=== PATIENT | male | born 1995 | race Caucasian/White ===

== ENCOUNTER 2018-01-07 13:02 | Emergency (ER) | payer OTHER ==
[2018-01-07] MEDS ORDERED: ONDANSETRON 4 MG/2 ML VIAL IVP ONE (13:15)
--- NOTE | 2018-01-07 13:19 | EDPHY ---
H & P Stated Complaint: RLQ/nausea pain for 3 days Time Seen by Provider: 01/07/18 13:16 HPI/ROS: HPI: This is a 22-year-old male who presents with Chief Complaint: RLQ/nausea pain for 3 days Location: Right lower quadrant abdomen Quality: Pain Duration: 3 days Signs and Symptoms: no fever, + nausea, no vomiting, no hematemesis, no blood in stool, no abdominal bloating, no diarrhea, no back pain, no urinary symptoms , no testicular/groin pain, no indigestion, no chest pain, no shortness of breath Timing: Worsening Severity: Moderate Context: Patient is a student at [employer], presents with insidious onset of right lower quadrant pain starting approximately 3 days ago. It initially started while playing hockey any thought he had an abdominal muscle strain. Last night, the pain intensified and became more constant. While walking to class today the pain was worsened with moving his legs and raising his right leg in particular. He reports that he continues to have a good appetite and last meal was around 11:00 a.m. He denies any fever, nausea, vomiting, urinary symptoms, testicular or groin pain. Modifying Factors: None Comment: ROS: A comprehensive 10 system review of systems is otherwise negative aside from elements mentioned in the history of present illness. MEDICAL/SURGICAL/SOCIAL HISTORY: Medical history: Tourette syndrome Surgical history: Denies Social history: Student at [employer]. Nonsmoker. Family history noncontributory. CONSTITUTIONAL: Well-developed, well-nourished physically fit young adult white male, awake and alert, no obvious distress HEENT: Atraumatic and normocephalic, PERRL, EOMI. Nares patent; no rhinorrhea; no nasal mucosal edema. Tympanic membranes clear. Oropharynx clear, no exudate and moist pink mucosa. Airway patent. No lymphadenopathy. No meningismus. Cardiovascular: Normal S1/S2, regular rate, regular rhythm, without murmur rub or gallop. PULMONARY/CHEST: Symmetrical and nontender. Clear to auscultation bilaterally. Good air movement. No accessory muscle usage. ABDOMEN: Soft, nondistended, moderate right lower quadrant tenderness, no rebound, no guarding, no peritoneal signs, no masses or organomegaly. No CVAT. Negative Rovsing sign. Positive psoas sign. Positive obturator sign. EXTREMITIES: 2/2 pulses, strength 5/5, no deformities, no clubbing, no cyanosis or edema. NEUROLOGICAL: no focal neuro deficits. GCS 15. SKIN: Warm and dry, no erythema. no rash. Good capillary refill. Source: Patient Exam Limitations: No limitations - Medical/Surgical History Hx Asthma: No Hx Chronic Respiratory Disease: No Hx Diabetes: No Hx Cardiac Disease: No Hx Renal Disease: No Hx Cirrhosis: No Hx Alcoholism: No Hx HIV/AIDS: No Hx Splenectomy or Spleen Trauma: No Other PMH: tourettes - Social History Smoking Status: Never smoked Constitutional: Initial Vital Signs Temperature (C) 36.4 C 01/07/18 13:06 Heart Rate 97 01/07/18 13:06 Respiratory Rate 18 01/07/18 13:06 Blood Pressure 142/65 H 01/07/18 13:06 O2 Sat (%) 96 01/07/18 13:06 O2 Delivery Mode Room Air Allergies/Adverse Reactions: ketorolac [From Toradol] Allergy (Verified 01/07/18 13:06) Home Medications: Medication Instructions Recorded Adderall Xr 15 mg Capsule 01/07/18 Lexapro 01/07/18 Medical Decision Making - Diagnostics Imaging Results: Imaging Impressions Abdomen Ultrasound 01/07/18 13:15 Impression: Nonvisualization of the appendix. Several prominent right lower quadrant lymph nodes seen, nonspecific, but can be associated with mesenteric adenitis. Findings and recommendations discussed with Mavis Castillo at 1405 hour, 2017. Abdomen CT 01/07/18 14:06 Impression: No acute abdominopelvic process. Findings and recommendations discussed with Mavis Castillo at 1528 hour, 2017. ED Course/Re-evaluation: Vital signs reviewed upon arrival and no systemic signs. Urinalysis, labs, abdominal ultrasound, IV medications ordered Patient given IV morphine 2 mg and IV Zofran 1405: Called by Dr. August who advised that the abdominal ultrasound is unable to visualize appendix. CT abdomen and pelvis scan ordered Labs reviewed. No signs of leukocytosis/anemia/platelet dysfunction/GREY/ elevated LFTs/electrolyte imbalance/pancreatitis. 1530: Called by radiologist, Dr. Toussaint, who advised that CT abdomen and pelvis scan shows no signs of appendicitis, obstruction, colitis, incarcerated hernia. Reassessed patient who reports abdominal pain is minimal. Advised supportive care. Suspect musculoskeletal verses abdominal gas pain in nature This patient was seen under the supervision of my secondary supervising physician. I evaluated care for this patient independently. Discussed this patient with Dr. Sanchez. Differential Diagnosis: Abdominal pain including but not limited to appendicitis, cholecystitis, gastritis and urinary tract infection. - Data Points Laboratory Results: Laboratory Results 01/07/18 13:19 01/07/18 13:19 01/07/18 01/07/18 13:19 13:19 WBC 6.10 10^3/uL 10^3/uL (3.80-9.50) RBC 5.04 10^6/uL 10^6/uL (4.40-6.38) Hgb 15.6 g/dL g/dL (13.7-17.5) Hct 44.8 % % (40.0-51.0) MCV 88.9 fL fL (81.5-99.8) MCH 31.0 pg pg (27.9-34.1) MCHC 34.8 g/dL g/dL (32.4-36.7) RDW 12.2 % % (11.5-15.2) Plt Count 265 10^3/uL 10^3/uL (150-400) MPV 9.0 fL fL (8.7-11.7) Neut % (Auto) 56.9 % % (39.3-74.2) Lymph % (Auto) 30.7 % % (15.0-45.0) Burnet % (Auto) 9.7 % % (4.5-13.0) Eos % (Auto) 1.6 % % (0.6-7.6) Baso % (Auto) 0.8 % % (0.3-1.7) Nucleat RBC Rel Count 0.0 % % (0.0-0.2) Absolute Neuts (auto) 3.47 10^3/uL 10^3/uL (1.70-6.50) Absolute Lymphs (auto) 1.87 10^3/uL 10^3/uL (1.00-3.00) Absolute Monos (auto) 0.59 10^3/uL 10^3/uL (0.30-0.80) Absolute Eos (auto) 0.10 10^3/uL 10^3/uL (0.03-0.40) Absolute Basos (auto) 0.05 10^3/uL 10^3/uL (0.02-0.10) Absolute Nucleated RBC 0.00 10^3/uL 10^3/uL (0-0.01) Immature Gran % 0.3 % % (0.0-1.1) Immature Gran # 0.02 10^3/uL 10^3/uL (0.00-0.10) Sodium 140 mEq/L mEq/L (135-145) Potassium 4.7 mEq/L mEq/L (3.3-5.0) Chloride 103 mEq/L mEq/L (97-110) Carbon Dioxide 30 mEq/l mEq/l (22-31) Anion Gap 7 mEq/L L mEq/L (8-16) BUN 20 mg/dL mg/dL (7-23) Creatinine 1.1 mg/dL mg/dL (0.7-1.3) Estimated GFR > 60 Glucose 87 mg/dL mg/dL (70-100) Calcium 10.0 mg/dL mg/dL (8.5-10.4) Total Bilirubin 0.5 mg/dL mg/dL (0.1-1.4) Conjugated Bilirubin 0.1 mg/dL mg/dL (0.0-0.5) Unconjugated Bilirubin 0.4 mg/dL mg/dL (0.0-1.1) AST 29 IU/L IU/L (17-59) ALT 34 IU/L IU/L (21-72) Alkaline Phosphatase 74 IU/L IU/L (38-126) Total Protein 7.2 g/dL g/dL (6.3-8.2) Albumin 4.4 g/dL g/dL (3.5-5.0) Lipase 62 IU/L IU/L (23-300) Medications Given: Discontinued Medications Morphine Sulfate (Morphine) 2 mg IVP EDNOW ONE Stop: 01/07/18 13:16 Last Admin: 01/07/18 13:56 Dose: 2 mg Ondansetron HCl (Zofran) 4 mg IVP EDNOW ONE Stop: 01/07/18 13:16 Last Admin: 01/07/18 13:56 Dose: 4 mg Departure - Departure Disposition: Home, Routine, Self-Care Clinical Impression: Right lower quadrant abdominal pain of unknown etiology Condition: Good Instructions: Gas and Bloating (ED), Abdominal Pain (ED) Additional Instructions: Consume a minimum of 8-10 glasses of water or electrolyte fluid replacement drinks that include Gatorade, Powerade, Pedialyte. Eat a bland diet for the next 48 hours and then slowly advance as tolerated. Return to the Emergency Room if symptoms do not resolve in the next 72 hours, you spike a fever > 102 F, or experience intractable abdominal pain/nausea/ vomiting. Referrals: AMANDA Cobb,. [Clinic] - 5-7 days, if not improved
[2018-01-07 13:35] LABS: PLATELET COUNT 265 10^3/uL (150-400)
[2018-01-07] MEDS ORDERED: IOPAMIDOL (ISOVUE-300) 100 ML BTL ONE (14:12)
[2018-01-07 15:42] VITALS: BP 108/61
== END 2018-01-07 15:41 | disposition home or self-care (01) ==
DX: R10.31 Right lower quadrant pain (principal); R11.0 Nausea; R14.0 Abdominal distension (gaseous)
CPT/HCPCS: 96374; J2270; J2405; Q9967